=== PATIENT | female | born 1945 | race Caucasian/White ===

== ENCOUNTER 2017-03-08 17:58 | Emergency (ER) | payer OTHER ==
--- NOTE | 2017-03-08 18:05 | EDPHY ---
H & P HPI/ROS: CHIEF COMPLAINT: Right ankle pain and paresthesias HISTORY OF PRESENT ILLNESS: The patient is a 71-year-old female, brought in by EMS, presenting with sudden onset of right ankle pain. While walking up the stairs this evening, she developed sudden onset of right ankle pain. The pain was sharp and severe, and located on the outer side of her ankle. Associated with transient difficulty ambulating secondary to pain. The pain subsided in a few moments and she was able to ambulate normally. While sitting at a coffee shop later this evening, she noticed a tingling sensation ascending up her right leg. Patient has a family history of stroke and became worried about a stroke. The right lower extremity tingling and numbness has resolved. She intermittently feels sharp pains in her ankle with movement. REVIEW OF SYSTEMS: A comprehensive 10 point review of systems is otherwise negative aside from elements mentioned in the history of present illness. Past Medical/Surgical History: Skin cancer Social History: Single. Retired. Lives in [place]. Physical Exam: General Appearance: Alert, pleasant Eyes: Pupils equal and round, no conjunctival pallor or injection ENT, Mouth: Mucous membranes moist Neck: Normal inspection Respiratory: Lungs are clear to auscultation Cardiovascular: Regular rate and rhythm Gastrointestinal: Abdomen is soft and non-tender Neurological: A&O, motor 5/5, sensory intact to light touch, normal gait Skin: Warm and dry, no rash Extremities: Swelling right lateral malleolus. 2+ dorsalis pedis pulses posteriorly. Capillary refill is brisk. Achilles tendon is intact. Psychiatric: Mood and affect normal Constitutional: Initial Vital Signs Temperature (C) 36.9 C 03/08/17 18:05 Heart Rate 69 03/08/17 18:05 Respiratory Rate 15 03/08/17 18:05 Blood Pressure 179/83 H 03/08/17 18:05 O2 Sat (%) 94 03/08/17 18:05 O2 Delivery Mode Room Air Allergies/Adverse Reactions: Sulfa (Sulfonamide Antibiotics) Allergy (Verified 03/08/17 18:05) Home Medications: Medication Instructions Recorded No Medications [NO HOME 0 ea [facility] [place] 04/17/11 MEDICATIONS] Medical Decision Making ED Course/Re-evaluation: Clinical presentation c/w acute musculoskeletal pain. I do not suspect stroke at this time. Pt reassured. I offered patient an ankle x-ray and ankle stirrup splint, she declines. Differential Diagnosis: includes though not limited to CVA, Achilles tendon rupture, fracture, neuropathy. Departure - Departure Disposition: Home, Routine, Self-Care Clinical Impression: Paresthesia of right leg Ankle pain, right Qualifiers: Chronicity: acute Qualified Code(s): M25.571 - Pain in right ankle and joints of right foot Condition: Good Instructions: Paresthesia (ED), Ankle Strain (ED) Additional Instructions: Rest, ice, and elevate the ankle when possible. Take 600mg Ibuprofen every 6-8 hours as needed for pain. Apply an KATHERINE wrap to the ankle for compression to reduce swelling. Referrals: ALICE BAHENA [Medical Doctor] - As per Instructions Report Scribed for: Brynn Reyes Report Scribed by: Melany Santiago Date of Report: 03/08/17 Time of Report: 18:05 Physician Review and Approval Statement: 03/08/17 18:05 Portions of this note were transcribed by a medical technologist clinical. I personally performed the history, physical exam, and medical decision-making; and confirmed the accuracy of the information in the transcribed note.
[2017-03-08 18:06] VITALS: BP 179/83; PULSE 69; RESP 15; TEMP 98.4; O2SAT 94
== END 2017-03-08 18:39 | disposition home or self-care (01) ==
LOC: EDUNIT#
DX: R20.2 Paresthesia of skin (principal); M25.571 Pain in right ankle and joints of right foot; Z85.828 Personal history of other malignant neoplasm of skin